=== PATIENT | male | born 2000 | race Caucasian/White ===

== ENCOUNTER 2019-10-14 23:42 | Emergency (ER) | payer BC, OTHER ==
[~2019-10-14] VITALS: Ht 185.4 cm; Wt 80.4 kg
[2019-10-14 23:43] VITALS: BP 118/67
[2019-10-15] MEDS ORDERED: LIDOCAINE 1% MDV 20ML VIAL IM ONE (01:45)
== END 2019-10-15 02:26 | disposition home or self-care (01) ==
LOC: M ED 23:42
DX: S01.112A Laceration without foreign body of left eyelid and periocular area, initial encounter (principal); W22.8XXA Striking against or struck by other objects, initial encounter; Y92.89 Other specified places as the place of occurrence of the external cause